=== PATIENT | male | born 1945 | race Caucasian/White ===

== ENCOUNTER → 2017-10-20 | Outpatient (CLI) | payer OTHER | LOC: CAT 10:21 | DX: J43.9 Emphysema, unspecified (principal); R91.1 Solitary pulmonary nodule; I70.0 Atherosclerosis of aorta ==

== ENCOUNTER → 2018-10-30 | Outpatient (CLI) | payer OTHER | LOC: CAT 10:03 | DX: J43.2 Centrilobular emphysema (principal); I25.10 Atherosclerotic heart disease of native coronary artery without angina pectoris; R91.1 Solitary pulmonary nodule; J98.4 Other disorders of lung; Z88.8 Allergy status to other drugs, medicaments and biological substances ==

== ENCOUNTER → 2020-01-30 | Outpatient (CLI) | payer OTHER | LOC: CAT 09:14 | PROVIDERS: ATTEND Internal Medicine | DX: J43.2 Centrilobular emphysema (principal); R91.1 Solitary pulmonary nodule ==